=== PATIENT | male | born 1955 | race Asian ===

== ENCOUNTER 2024-03-23 18:06 | Emergency (ER) | payer SELFPAY ==
[2024-03-23] MEDS ORDERED: Labetalol HCl 100 MG/20 ML VIAL ONE (19:27)
[2024-03-23 19:59] LABS: Anion Gap 12 mmol/L (10-20); BUN (Urea Nitrogen) 21 mg/dL (8.4-25.7); Calc. Creatinine Clearance 0 mL/min (70-130); Calcium 9.6 mg/dL (7.8-10.44); Carbon Dioxide 27 mmol/L (23-31); Chloride 104 mmol/L (98-107); Estimated GFR 80; Glucose 90 mg/dL (80-115); Potassium 4.1 mmol/L (3.5-5.1); Sodium 139 mmol/L (136-145)
[2024-03-23] MEDS ORDERED: cloNIDine 0.1 MG TAB ONE (21:14)
== END 2024-03-23 22:47 | disposition home or self-care (01) ==
LOC: CSHERS 18:06
DX: I10 Essential (primary) hypertension (principal)
CPT/HCPCS: 70450; 80048; 96374; 96376